=== PATIENT | male | born 1985 | race Two or more races ===

== ENCOUNTER 2016-12-06 10:40 | Emergency (ER) | payer MEDICAID, OTHER ==
[~2016-12-06] VITALS: Ht 165.1 cm; Wt 89.6 kg
[2016-12-06] MEDS ORDERED: ACETAMINOPHEN 500 MG TABLET ONE (11:17)
[2016-12-06] MEDS ORDERED: ONDANSETRON 2MG/ML, 2ML ONE (11:17)
[2016-12-06] MEDS ORDERED: ACETAMINOPHEN 325 MG TABLET PO ONE (11:30)
[2016-12-06] MEDS ORDERED: ONDANSETRON 2MG/ML, 2ML IVPush ONE (11:30)
[2016-12-06] MEDS ORDERED: SODIUM CHLORIDE 0.9% 1,000ML IVBOLUS ONE (11:30)
[2016-12-06 11:57] LABS: BLOOD UREA NITROGEN 10 mg/dL (7-18)
[2016-12-06 11:59] VITALS: BP 119/71
== END 2016-12-06 13:13 | disposition home or self-care (01) ==
LOC: ED 12:26
DX: B34.9 Viral infection, unspecified (principal); A08.39 Other viral enteritis; E86.0 Dehydration
CPT/HCPCS: 36415; 80048; 81001; 82040; 85025; 96374; 99284; J2405; J7030